=== PATIENT | female | born 1980 | race African-American/Black ===

== ENCOUNTER 2016-06-27 12:34 | Emergency (ER) | payer BC ==
--- NOTE | ~2016-06-27 | CT2 ---
[facility] A Service of [facility] RADIOLOGY TEXT RESULTS PATIENT: IVETTE ERAZO LOCATION: [facility] : 78 UNIT #: [id number] AGE: [address]: Marcos Maya DO SEX: F ORDER DR: [id number] [facility]. [place], [place] [address] [id number] E MR#: [id number] Acc #: [id number] NAME: IVETTE ERAZO : 1980 SEX: F STUDY DATE/TIME: 06/27/2016 17:12 UNIT: [facility] ROOM: STUDY DESCRIPTION: CT Abd and Pelv W Cont Attending Physician: Marcos Maya D.O. Ordering Physician: Marcos Maya D.O. Primary Care Physician: Kiesha Li M.D. MEDICAL IMAGING REPORT This report is preliminary unless electronic signature is present EXAM CT abdomen and pelvis with contrast 06/27/2016. HISTORY 36-year-old female in the ED complaining of 2-day history of nausea, vomiting and diarrhea. TECHNIQUE CT examination of the abdomen and pelvis was performed with IV contrast. GI contrast was not ordered. This CT exam was performed with one or more of the following radiation dose reduction techniques: automatic exposure control, adjustment of mA and/or kV according to patient size, and iterative reconstruction. Contrast opacification is suboptimal due to a reported technical malfunction involving the contrast injection device during the exam. FINDINGS ABDOMEN: Cholecystectomy. No significant bile duct dilatation. Liver, pancreas and spleen are normal in size and appearance. Both kidneys are negative with no evidence of urinary obstruction. Small bowel and colon are normal in caliber and appearance, as imaged. The appendix is normal. Normal-caliber abdominal aorta. PELVIS: Uterus, ovaries, bladder and rectum are within normal limits. No inguinal hernia or significant abdominal wall hernia. Limited lung base images show no active disease in the lower chest. IMPRESSION 1. No acute abnormality within the abdomen or pelvis per the technical limitations as noted above. [facility] A Service of [facility] RADIOLOGY TEXT RESULTS PATIENT: IVETTE ERAZO [id number] : [birth year] UNIT #: [id number] AGE: [address]: Marcos Maya DO SEX: F ORDER DR: 2. Cholecystectomy. 3. The appendix is normal. Dictated by... Moshe Carney M.D. THIS IS AN ELECTRONICALLY VERIFIED REPORT Moshe Carney M.D. at 06/28/2016 10:15 AM SINDHUW/uziel TD: 06/27/2016 23:24 JOB #: [id number] MEDICAL IMAGING REPORT Page 1 of 1 COPY
--- NOTE | ~2016-06-27 | EKG ---
PATIENT: IVETTE ERAZO UNIT #: [id number] Ventricular Rate: 96 BPM Atrial Rate: 96 BPM P-R Interval: 180 ms QRS Duration: 84 ms Q-T Interval: 346 ms QTC Calculation(Bezet): 437 ms P Anson: 48 degrees Calculated R Anson: 34 degrees Calculated T Anson: -28 degrees Diagnosis Line: Normal sinus rhythm Diagnosis Line: Nonspecific T wave abnormality Diagnosis Line: Abnormal ECG Diagnosis Line: When compared with ECG of 21-OCT-2013 16:17, Diagnosis Line: No significant change was found Diagnosis Line: Confirmed by TONY HUNTER MD ([id number]) on Diagnosis Line: 06/28/2016 1:30:07 PM INTERPRETING MD: DALE SADLER
--- NOTE | ~2016-06-27 | CR72 ---
[facility] A Service of [facility] RADIOLOGY TEXT RESULTS PATIENT: IVETTE ERAZO LOCATION: [facility] : 78 UNIT #: [id number] AGE: [address]: Marcos Maya DO SEX: F ORDER DR: [id number] [facility] [address] [facility]. [place], [place] [address] [id number] E MR#: [id number] Acc #: [id number] NAME: IVETTE ERAZO : 1980 SEX: F STUDY DATE/TIME: 06/27/2016 16:04 UNIT: [facility] ROOM: STUDY DESCRIPTION: CR Chest Single View Portable Attending Physician: Marcos Maya D.O. Ordering Physician: Marcos Maya D.O. Primary Care Physician: Kiesha Li M.D. MEDICAL IMAGING REPORT This report is preliminary unless electronic signature is present EXAM Portable chest INDICATIONS Chest pain and shortness of breath and cough today. COMPARISON STUDIES No comparisons. FINDINGS Low-volume inspiration. No definite acute infiltrate. Heart size is normal. IMPRESSION No active disease. Dictated by... Woodrow Pritchard M.D. THIS IS AN ELECTRONICALLY VERIFIED REPORT Woodrow Pritchard M.D. at 06/29/2016 7:24 AM ARS/pcl TD: 06/27/2016 21:45 JOB #: [id number] MEDICAL IMAGING REPORT Page 1 of 1 COPY
[~2016-06-27 12:34] MED LIST: ADVIL200 M1 PO; FLEXERIL10 M1 PO; NEXIUM PO; ORUDIS75 M1 DOB; PERCOCET5/325 PO
[2016-06-27 13:55] LABS: BASOPHIL% 0.1 % (0-2.5); EOSINOPHIL% 0.1 % (0.0-7.0); HEMATOCRIT 42.5 % (35.0-45.0); HEMOGLOBIN 13.7 gm/dL (12.0-16.0); LYMPHOCYTE# 0.4 X10e3 (1.0-3.5); LYMPHOCYTE% 2.8 % (17.0-45.0); MEAN CELL VOLUME 84.2 FL (83-96); MEAN CORPUSCULAR HEMOGLOBIN 27.2 PG (28-34); MEAN CORPUSCULAR HGB CONC 32.3 g/dL (30-36); MEAN PLATELET VOLUME 8.3 FL (6.5-11.5); MONOCYTE# 0.5 X10e3 (0-1.0); MONOCYTE% 3.6 % (3.0-12.0); NEUTROPHIL# 12.2 X10e3 (1.5-7.1); NEUTROPHIL% 93.4 % (40-75); PLATELET COUNT 300 X10e3 (140-420); RED BLOOD COUNT 5.05 X10e (3.90-5.30); RED CELL DISTRIBUTION WIDTH 13.7 % (11.0-15.5); WHITE BLOOD COUNT 13.1 X10e3 (4.0-10.5)
[2016-06-27 13:59] LABS: DIFF IND NO
[2016-06-27 14:26] LABS: ALBUMIN SERUM 4.6 g/dL (3.5-5.0); BILIRUBIN, DIRECT 0.1 mg/dL (0.0-0.2); BILIRUBIN,INDIRECT 0.5 mg/dL (0.0-0.9); BILIRUBIN,TOTAL 0.6 mg/dL (0.2-2.0); GLOM FILT RATE Estimated 83.4 mL/min (>60); POTASSIUM 3.8 mmol/L (3.5-5.1); PROTEIN TOTAL SERUM 8.2 g/dL (6.0-8.3)
[2016-06-27 15:57] LABS: POC - CKMB 1.1 ng/mL (0.0-7.9); POC - TROPONIN <0.05 ng/mL (<=0.05)
[2016-06-27 16:10] LABS: URINE SOURCE CLEAN CATCH
[2016-06-27 16:22] LABS: URINE APPEARANCE CLEAR; URINE BILIRUBIN NEG (NEG); URINE BLOOD 2+ (NEG); URINE COLOR YELLOW; URINE GLUCOSE NEG (NEG); URINE KETONE NEG (NEG); URINE LEUKOCYTE ESTERASE NEG (NEG); URINE NITRATE NEG (NEG); URINE PH 5.5 (5-8); URINE PROTEIN NEG (NEG); URINE SPECIFIC GRAVITY 1.025 (1.003-1.035)
[2016-06-27 16:24] LABS: CULTURE INDICATED? YES; URINE BACTERIA AUWI 1+ (NEGATIVE); URINE SQUAMOUS EPITHELIAL CELL OCC /[HPF]; UWBCS1 AUWI 0-2 (0-5)
[2016-06-27 17:21] LABS: POC - TROPONIN <0.05 ng/mL (<=0.05)
== END 2016-06-27 19:06 | disposition home or self-care (01) ==
LOC: CED 12:34
PROVIDERS: Emergency Medicine
DX: R07.89 Other chest pain (principal); R11.2 Nausea with vomiting, unspecified; K21.9 Gastro-esophageal reflux disease without esophagitis; Z90.49 Acquired absence of other specified parts of digestive tract
CPT/HCPCS: 36415; 71010; 74177; 80048; 80076; 81003; 82553; 83690; 84484; 84703; 85025; 87086; 93005; 96361; 96372; 96374; 96375; 99284; J0500; J2405; Q9967